=== PATIENT | male | born 1990 | race African-American/Black ===

== ENCOUNTER 2022-06-10 12:06 | Emergency (ER) | payer SELFPAY ==
[2022-06-10 12:39] LABS: Bilirubin Negative (Negative); Blood, Urine Negative (Negative); Clarity Clear (Clear); Glucose, Urine (Dipstick) Negative (Negative); Ketone, Urine Negative (Negative); Leukocyte Small (Negative); Nitrite Negative (Negative); Protein, Urine (Dipstick) Trace mg/dL (Neg-Trace); Urobilinogen 0.2 mg/dL (Less than 2); pH, Urine 7.5 (5.0-9.0)
[2022-06-10 12:44] LABS: Bacteria/HPF None Seen HPF (None Seen); RBC/HPF None Seen HPF (0-3); Squamous Epithelial None Seen HPF (0-3); WBC/HPF 21-50 HPF (0-3)
[2022-06-10] MEDS ORDERED: Azithromycin 250 MG TAB ONE (13:14)
[2022-06-10] MEDS ORDERED: Promethazine 25 MG TAB ONE (13:14)
== END 2022-06-10 13:22 | disposition home or self-care (01) ==
LOC: NAV ERS 12:06
DX: R30.0 Dysuria (principal); F17.290 Nicotine dependence, other tobacco product, uncomplicated
CPT/HCPCS: 81003; 81015; 99283; Q0169

== ENCOUNTER 2023-12-01 12:49 | Emergency (ER) | payer SELFPAY ==
[2023-12-01] MEDS ORDERED: Ondansetron PF 4 MG/2 ML Vial ONE (13:07)
[2023-12-01] MEDS ORDERED: Ibuprofen 200 MG TAB ONE (13:07)
[2023-12-01] MEDS ORDERED: Sodium Chloride 0.9% 1,000 ML ONE (13:08)
[2023-12-01 13:35] LABS: #Basophils 0.1 thou/uL (0.0-0.2); #Lymphocytes 1.1 thou/uL (1.20-3.40); #Monocytes 0.7 thou/uL (0.11-0.59); #Neutrophils 5.1 thou/uL (1.40-6.50); %Basophils 1.6 % (0.0-1.0); %Eosinophils 0.1 % (0.0-10.0); %Lymphocytes 15.9 % (21.0-51.0); %Monocytes 10.2 % (0.0-10.0); %Neutrophils 72.2 % (42.0-75.0); Hematocrit 43.6 % (42.0-52.0); Hemoglobin 13.8 g/dL (14.0-18.0); Mean Corpuscular HGB CONC 31.6 g/dL (32.0-36.0); Mean Corpuscular Hemoglobin 26.5 pg (27.0-31.0); Mean Corpuscular Volume 83.7 fl (78.0-98.0); Mean Platelet Volume 11.1 fL (7.4-10.4); Platelet Count 140 10x3/uL (130-400); RBC Distribution Width 13.4 % (11.5-14.5); Red Blood Cell (RBC) Count 5.21 mill/uL (4.70-6.10); White Blood Cell (WBC) Count 7.1 10x3/uL (4.8-10.8)
[2023-12-01 13:41] LABS: Anion Gap 15 mmol/L (10-20); BUN (Urea Nitrogen) 8 mg/dL (8.9-20.6); Calc. Creatinine Clearance 0 mL/min (70-130); Carbon Dioxide 23 mmol/L (22-29); Chloride 103 mmol/L (98-107); Estimated GFR 116; Glucose 99 mg/dL (70-105); Potassium 3.7 mmol/L (3.5-5.1); Sodium 137 mmol/L (136-145)
[2023-12-01] MEDS ORDERED: diphenhydrAMINE 50 MG/ML VIAL ONE (13:55)
[2023-12-02 16:37] LABS: SARS-CoV-2 N1 Negative; SARS-CoV-2 N2 Negative; SARS-CoV-2 RNAse P1 Positive; SARS-CoV-2 RNAse P2 Positive
== END 2023-12-01 14:37 | disposition home or self-care (01) ==
LOC: NAV ERS 12:49
DX: J30.9 Allergic rhinitis, unspecified (principal); J10.1 Influenza due to other identified influenza virus with other respiratory manifestations; E86.0 Dehydration; F17.290 Nicotine dependence, other tobacco product, uncomplicated
CPT/HCPCS: 80048; 85025; 87635; 87804; 96361; 96374; 96375; J1200; J2405; J7050

== ENCOUNTER 2024-04-27 02:56 | Emergency (ER) | payer SELFPAY | END 2024-04-27 03:32 | disposition home or self-care (01) | LOC: NAV ERS 02:56 | DX: L05.01 Pilonidal cyst with abscess (principal); F17.290 Nicotine dependence, other tobacco product, uncomplicated | CPT/HCPCS: 10080 ==

== ENCOUNTER 2025-08-28 01:44 | Emergency (ER) | payer OTHER, SELFPAY ==
[2025-08-28] MEDS ORDERED: Mag-Al Plus 1200/1200/120 MG (30 mL) UDCUP ONE (02:07)
[2025-08-28] MEDS ORDERED: Lidocaine Viscous Sol 2% 15 ml UD Cup ONE (02:08)
== END 2025-08-28 02:24 | disposition home or self-care (01) ==
LOC: NAV ERS 01:44
DX: K21.9 Gastro-esophageal reflux disease without esophagitis (principal); L73.9 Follicular disorder, unspecified; J30.2 Other seasonal allergic rhinitis; F17.290 Nicotine dependence, other tobacco product, uncomplicated
CPT/HCPCS: 99283